=== PATIENT | female | born 2000 | race Caucasian/White ===

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

== ENCOUNTER → 2018-03-13 | Outpatient (CLI) | payer BC, OTHER ==
--- NOTE | 2018-03-13 15:57 | MRI ---
MRI right shoulder without contrast INDICATION: Shoulder pain rotator cuff syndrome previous surgery 3-4 years ago posterior scapular pain with knot. TECHNIQUE: Noncontrast MR imaging right shoulder FINDINGS: Previous subacromial decompression with Yoselyn and acromioplasty. Trace bursal edema. Rotator cuff tendinopathy without rupture or retraction. Mild fraying posterior superior labrum. No displaced fragment. No scapular fracture or destructive process. Minimal grade 1 marbling of the rotator cuff muscle bellies. No denervation muscle edema or atrophy. See separate report for large [id number] scapula exam of the area of palpable knot. Subscapularis is intact. There is interstitial fissuring-type partial tear of the long head bicep without complete rupture or dislocation. Correlate with bicep pain. IMPRESSION: Interstitial partial tear long head bicep correlate with symptoms No high-grade partial or full-thickness rotator cuff tear Previous subacromial decompression No mass in the shoulder region however a larger [id number] scapula study is dictated separately Electronically signed by: Jourdan Suero MD 03/13/2018 3:56 PM CDT
--- NOTE | 2018-03-13 16:20 | MRI ---
MRI right scapula without contrast INDICATION: Scapular pain posterior with palpable knot. TECHNIQUE: Noncontrast MR imaging right scapula FINDINGS: There is intramuscular edema medial to the scapula most likely rhomboid indicating strain or overuse. No focal mass noted. This is in the area of symptoms. This is best visualized on the axial fluid sensitive T2 fat suppressed images. No pathologic adenopathy is noted. No fracture is noted. No additional abnormalities identified. No subcutaneous abnormality is identified. This corresponds to the palpable abnormality IMPRESSION: Intramuscular edema right rhomboid major deep to the trapezius indicating overuse or strain Electronically signed by: Jourdan Suero MD 03/13/2018 4:18 PM CDT
== END ==
LOC: MRI 13:07
PROVIDERS: ATTEND Orthopaedic Surgery
DX: M75.101 Unspecified rotator cuff tear or rupture of right shoulder, not specified as traumatic (principal); M25.511 Pain in right shoulder

== ENCOUNTER 2018-06-28 19:35 | Emergency (ER) | payer BC, OTHER ==
[2018-06-28 20:30] VITALS: O2SAT 100
[2018-06-28] MEDS ORDERED: CYCLOBENZAPRINE HCL 10 MG TAB PO ONE (20:31)
[2018-06-28] MEDS ORDERED: BENZONATATE PERLES 100 MG CAP PO ONE (20:32)
--- NOTE | 2018-06-28 20:34 | ED.PDOC ---
History of Present Illness - General Chief Complaint: ENT Problem Stated Complaint: rt ear pain Time Seen by Provider: 06/28/18 19:39 Source: patient, family Exam Limitations: no limitations - History of Present Illness Initial Comments: Patient presents complaining of a cough productive of yellow sputum for one week. She also says she has had a fever for the whole week. She has right ear pain and right neck pain that emerged suddenly upon waking two days ago. The cough makes the pain worse. Also c/o sore throat and yellow rhinorrhea. No other complaints. Has had multiple contacts with similar symptoms. Timing/Duration: 1 week Severity: moderate Improving Factors: nothing Worsening Factors: nothing Associated Symptoms: other - as in HPI Allergies/Adverse Reactions: Allergies Iodine Allergy (Verified 06/28/18 20:07) Tramadol [From Ultram] Allergy (Verified 06/28/18 20:07) Home Medications: Ambulatory Orders Benzonatate Perles [Tessalon Perles] 100 mg PO Q8HRS #20 cap 06/28/18 Cyclobenzaprine HCl [Flexeril] 10 mg PO TID PRN #20 tab 06/28/18 Review of Systems - Review of Systems Constitutional: States: see HPI EENTM: States: see HPI Respiratory: States: see HPI Cardiology: States: no symptoms reported Gastrointestinal/Abdominal: States: no symptoms reported Genitourinary: States: no symptoms reported Musculoskeletal: States: see HPI Skin: States: no symptoms reported Neurological: States: no symptoms reported Endocrine: States: no symptoms reported Hematologic/Lymphatic: States: no symptoms reported Past Medical History (General) - Patient Medical History Hx Seizures: No Hx Stroke: No Hx Dementia: No Hx Asthma: Yes Hx of COPD: No Hx Cardiac Disorders: No Hx Congestive Heart Failure: No Hx Pacemaker: No Hx Hypertension: No Hx Thyroid Disease: No Hx Diabetes: No Hx Gastroesophageal Reflux: No Hx Renal Disease: No Hx Cancer: No Hx of HIV: No Hx Hepatitis C: No Hx MRSA: No Surgical History: no surgical history - Vaccination History Hx Tetanus, Diphtheria Vaccination: Yes Hx Influenza Vaccination: No Hx Pneumococcal Vaccination: No - Social History Hx Tobacco Use: No Hx Alcohol Use: No Family Medical History - Family History Mother Family History: Unknown Physical Exam - Physical Exam General Appearance: Alert Eye Exam: bilateral normal Ears, Nose, Throat: normal ENT inspection Neck: full range of motion, supple, other - Mildly TTP over the right side of her neck. Is is mildly worse with rotation of the head as well as flexion and extension. Respiratory: lungs clear, normal breath sounds Cardiovascular/Chest: normal peripheral pulses, regular rate, rhythm Gastrointestinal/Abdominal: normal bowel sounds, non tender, soft Back Exam: normal inspection, no CVA tenderness Skin Exam: normal color Lymphatic: no adenopathy Progress - Progress Progress: 06/28/18 21:40 Rapid strep negative. Influenza negative. CXR negative. Patient given Tessalon 100 mg po x one and Flexeril 10 mg po x one with some relief. RX given for Tessalon and Flexeril. Care instructions given. E.R. warnings given. Questions were elicited and answered. Patient voiced understanding and agreement with the plan. Departure - Departure Clinical Impression: Cough, Upper respiratory infection, Neck sprain Disposition: Discharge to Home or Self Care Condition: Good Departure Forms: ED Discharge - Pt. Copy, Patient Portal Self Enrollment Instructions: Cough, Adult (DC), Neck Sprain (DC), Viral Upper Respiratory Infection, Adult (DC) Diet: resume usual diet Activity: increase activity as tolerated Referrals: Dilan Johnson MD [Primary Care Provider] - 1-2 Weeks Prescriptions: Benzonatate Perles [Tessalon Perles] 100 mg PO Q8HRS #20 cap Cyclobenzaprine HCl [Flexeril] 10 mg PO TID PRN #20 tab PRN Reason: Mild To Moderate Pain Home Medications: Ambulatory Orders Benzonatate Perles [Tessalon Perles] 100 mg PO Q8HRS #20 cap 06/28/18 Cyclobenzaprine HCl [Flexeril] 10 mg PO TID PRN #20 tab 06/28/18 Additional Instructions: Take medications as prescribed. Try heat to the painful area of the neck in three days. Until then, ice or heat as you prefer. See your regular doctor if cough persists for more than another week or if neck pain has not resolved in two weeks.
--- NOTE | 2018-06-28 21:03 | RAD ---
EXAM DESCRIPTION: Chest,2 Views CLINICAL HISTORY:17 years Female, cough and fever Comparison: None FINDINGS: PA and lateral views of the chest. Cardiomediastinal silhouette is within normal limits. No focal lung consolidation. No pleural effusion. No pneumothorax. No acute osseous finding. IMPRESSION: No acute chest finding. Electronically signed by: Neyda Henao MD 06/28/2018 9:02 PM [employer]
[2018-06-28 21:52] VITALS: BP 120/80; TEMP 98.7
== END 2018-06-28 21:52 | disposition home or self-care (01) ==
LOC: ER 19:35
DX: J06.9 Acute upper respiratory infection, unspecified (principal); S16.1XXA Strain of muscle, fascia and tendon at neck level, initial encounter; H92.01 Otalgia, right ear; J45.909 Unspecified asthma, uncomplicated; Z88.8 Allergy status to other drugs, medicaments and biological substances; Z91.041 Radiographic dye allergy status; X58.XXXA Exposure to other specified factors, initial encounter; Y92.9 Unspecified place or not applicable

== ENCOUNTER → 2018-11-24 | Outpatient (CLI) | payer BC ==
--- NOTE | 2018-11-25 12:28 | MRI ---
EXAM DESCRIPTION: Thoracic Spine w/o Contrast: Magnetic Resonance Imaging. CLINICAL HISTORY: UPPER BACK PAIN COMPARISON: XR of the thoracic spine 10/30/2018. TECHNIQUE: Multiplanar, multiple standard sequences, non contrast MRI, thoracic spine. FINDINGS: Disc desiccation signal, decreased on T2 and IR sequences at T7-T8, T8-T9, and T9-T10. No disc bulging. Canal and neural foramina are patent. Remaining discs with normal signal. Disc spaces are preserved. Canal and foramina are patent. No scoliosis. Facet joints are unremarkable. Conus terminates at L1. Cord with normal signal, no compression. Paravertebral soft tissues are unremarkable. Normal marrow signal in the remaining vertebral bodies and the posterior elements. Vertebral bodies are not compressed at any level. IMPRESSION: 1. Minimal desiccation and disc space loss T7-T8 disc, T8-T9 disc, and T9-T10 disc. No herniation. No canal or foraminal narrowing. 2. Remaining discs and disc spaces are unremarkable. Posterior elements are intact. No canal or foraminal stenosis. The included cord shows normal signal. Electronically signed by: Lauro Guerra MD 11/25/2018 12:26 PM CDT
== END ==
LOC: MRI 13:00
PROVIDERS: ATTEND Family Medicine
DX: M51.34 Other intervertebral disc degeneration, thoracic region (principal)